=== PATIENT | female | born 1995 ===

== ENCOUNTER 2025-09-15 12:57 | Outpatient (AMB) | payer MEDICAID, SELFPAY ==
[2025-09-15 13:31] VITALS: BP 117/74; PULSE 74; RESP 18; TEMP 36.6; O2SAT 97; BMI 35.7
--- NOTE | 2025-09-15 13:31 | OBCLNT_ITS ---
Vital Signs 09/15/25 13:31 Height 1.55 m Height Method Stated Weight 85.956 kg Weight Measurement Method Standing Scale BMI 35.7 BP 117/74 Blood Pressure Source Automatic Cuff Blood Pressure Location Right Upper Arm Position Sitting Respiration 18 Pulse 74 Pulse Source Monitor Temp 97.8 F Temp Source Temporal Artery Scan Pulse Oximetry (%) 97 Oxygen Delivery Method Room Air Allergies/Home Meds Allergies & Medications Allergies No Known Allergies Allergy (Verified 10/03/25 09:04) Immunizations Immunizations Flu Vaccine in the Last 12 Months: No Flu Vaccine Exclusion Criteria: Refused by Patient Care OB Visit Log OB Flowsheet Initial Weight: Not Recorded Date -?-?-?-?-?-?-?-?-?-?-?-?- EGA Weight BP Alb Glu CTX Pres Fundal ht FHR Mov Dilation Station Effacement Hx Notes Visit Note 09/01/25 -?-?-?-?-?-?-?-?-?-?-?-?- 33w 5d 84.935 kg 99/64 absent cephalic 35 135 active Antonina Prather, , presents for routine visit at 33 weeks and 4 days gestation. No contractions, LOF, VB and reports goo d FM. Denies CONNELLY, VC, and epigastric pain. - Patient reports baby moving well, no contractions - Physical examination performed - Next appointment scheduled in 2 weeks with vaginal culture planned - Ultrasound to be ordered for next visi t (last ultrasound was in June) - Patient advised to register at [facility] for delivery 09/15/25 -?-?-?-?-?-?-?-?-?-?-?-?- 35w 5d 85.956 kg 117/74 absent cephalic 36 151 active - Antonina Lackey is here for a routine visit. - She reports no contractions and notes that the baby is active. - She denies any concerning symptoms or changes since her last visi t. - Vaginal culture (GBS) performed today - Follow up in one week - Continue care with coronary care unit nurse Joslyn for ne xt appointment 09/26/25 -?-?-?-?-?-?-?-?-?-?-?-?- 37w 2d 87.26 kg 117/58 absent cephalic 37 143 active 50 -3 Good movement no contractions no loss of fluids Group B strep done today. It was not sent last time. Cervix examined 10/03/25 -?-?-?-?-?-?-?-?-?-?-?-?- 38w 2d 86.239 kg 119/75 occasional cephalic 38 133 active 2 50 -2 Good movements GBS negative , L abor precautions EFW is 8.5 lbs OCTAVIANO Calculator Estimated Delivery Date Method Current WG Current Estimate 10/15/25 LMP (Certain) 40w 5d Expected Delivery Route/Plan 30-year-old -0-0-3 History of vaginal delivery x 3 with no complications Last baby 2 years old Anticipate Specific Issue/Plans Kyrgyz-speaking only Notes Visit Date: 09/26/25 Last Updated by: Lia Watson (OB Clinic)MD records: O+, antibody negative, rubella immune, RPR nonreactive, HIV negative, hepatitis B surface antigen negative, GC negative ,Chlamydia n egative Visit Date: 09/01/25 Last Updated by: Akshat Faulkner MD - Date: 04/07/2025 - Blood type: O positive - Antibody screen: Negative - RPR: Non-reactive - HIV: Non-reactive - Hepatitis B: Negative - Rubella: Immune - Gonorrhea: Negative - Chlamydia: Negative - SMA: Negative - Cystic fibrosis: Negative - Date: 07/25/2025 - One hour glucose tolerance test: 125 - Repeat RPR: Non-reactive Office Procedures [facility] Clinic LOC & Office Proc's Nursing/Assessment Patient Status: Established Patient OB Clinic Nursing Assessment: Medication Reconciliation, Update PMH in EMR and Vital Signs OB Clinic Coordination of Care: Complex Care and Chronic Disease 1-5, Education Complex Pt/Fam, Consent,records obtained, informed consent, Lab and Imaging orders, Results/Orders obtained and Staff clarify orders Special Needs: Heart tones Established Patient Charge Established Patient Point Assignment: 140 Established Patient Point Charge: EP Level 4 (120-155) Assessment & Plan Diagnosis / Problem List (1) Multigravida in third trimester: Status: Acute Plan Plan - Vaginal culture (GBS) performed today - Follow up in one week - Continue care with coronary care unit nurse Joslyn for next appointment 1. Progress Reviewed gestational age, growth, and heart rate. heart rate was 151-152 bpm, which is normal. Patient reports no contractions and baby is active. Planned frequent visits (every 2 weeks until 36 weeks, then weekly). Scheduled follow-up in one week. 2. Instructed patient to monitor movements and report decreases immediately. 3. Testing Counseled on routine third-trimester labs per guidelines. Group B Streptococcus (GBS) vaginal culture was performed today. Discussed potential need for ultrasound or monitoring based on risk factors. 4. Preeclampsia Precaution Educated on preeclampsia signs: severe headache, vision changes, right upper quadrant pain, sudden swelling. Advised urgent reporting of symptoms and discussed blood pressure monitoring if high risk. 5. Labor Precautions Reviewed labor signs: regular contractions, pelvic pressure, back pain, bleeding, or fluid leakage. Instructed to seek immediate care for these symptoms. 6. Lifestyle and Delivery Preparation Reinforced vitamins, nutrition, and safe activity. Discussed plan, pain management, and . Patient will be scheduled with coronary care unit nurse Joslyn for continuity of care as she may be the provider at delivery. Advised on labor preparation (e.g., hospital bag) and expectations. 7. Psychosocial Support Assessed emotional well-being and offered resources for mental health or parenting support.
== END 2025-09-15 14:13 | disposition home or self-care (01) ==
LOC: HODSOBC 12:57
PROVIDERS: Supervising Provider Obstetrics & Gynecology; Visit Provider Obstetrics & Gynecology
DX: Z34.83 Encounter for supervision of other normal pregnancy, third trimester (principal); Z3A.35 35 weeks gestation of pregnancy; Z36.85 Encounter for antenatal screening for Streptococcus B; Z28.21 Immunization not carried out because of patient refusal
CPT/HCPCS: 99214; G0463

== ENCOUNTER 2025-09-26 15:04 | Outpatient (AMB) | payer MEDICAID, SELFPAY ==
[2025-09-26 15:22] VITALS: BP 117/58; PULSE 70; RESP 18; TEMP 36.3; O2SAT 98; BMI 36.3
--- NOTE | 2025-09-26 15:22 | OBCLNT_ITS ---
Vital Signs 09/26/25 15:22 Height 1.55 m Height Method Stated Weight 87.26 kg Weight Measurement Method Standing Scale BMI 36.3 BP 117/58 L Blood Pressure Source Automatic Cuff Blood Pressure Location Right Upper Arm Position Sitting Respiration 18 Pulse 70 Pulse Source Monitor Temp 97.3 F Temp Source Temporal Artery Scan Pulse Oximetry (%) 98 Oxygen Delivery Method Room Air Allergies/Home Meds Allergies & Medications Allergies No Known Allergies Allergy (Verified 09/26/25 15:23) Medication Reconciliation No Known Home Medications 09/26/25 [History Confirmed 09/26/25] Immunizations Immunizations Flu Vaccine in the Last 12 Months: No Flu Vaccine Exclusion Criteria: No Exclusion Criteria Care OB Visit Log OB Flowsheet Initial Weight: Not Recorded Date -?-?-?-?-?-?-?-?-?-?-?-?- EGA Weight BP Alb Glu CTX Pres Fundal ht FHR Mov Dilation Station Effacement Hx Notes Visit Note 09/01/25 -?-?-?-?-?-?-?-?-?-?-?-?- 33w 5d 84.935 kg 99/64 absent cephalic 35 135 active Antonina Prather, , presents for routine visit at 33 weeks and 4 days gestation. No contractions, LOF, VB and reports goo d FM. Denies CONNELLY, VC, and epigastric pain. - Patient reports baby moving well, no contractions - Physical examination performed - Next appointment scheduled in 2 weeks with vaginal culture planned - Ultrasound to be ordered for next visi t (last ultrasound was in June) - Patient advised to register at [facility] for delivery 09/26/25 -?-?-?-?-?-?-?-?-?-?-?-?- 37w 2d 87.26 kg 117/58 absent cephalic 37 143 active 50 -3 Good movement no contractions no loss of fluids Group B strep done today. It was not sent last time. Cervix examined OCTAVIANO Calculator Estimated Delivery Date Method Current WG Current Estimate 10/15/25 LMP (Certain) 37w 2d Expected Delivery Route/Plan 30-year-old -0-0-3 History of vaginal delivery x 3 with no complications Last baby 2 years old Anticipate Specific Issue/Plans [place]-speaking only Notes Visit Date: 09/26/25 Last Updated by: Lia Watson (OB Clinic)MD records: O+, antibody negative, rubella immune, RPR nonreactive, HIV negative, hepatitis B surface antigen negative, GC negative ,Chlamydia negative Visit Date: 09/01/25 Last Updated by: Akshat Faulkner MD - Date: 04/07/2025 - Blood type: O positive - Antibody screen: Negative - RPR: Non-reactive - HIV: Non-reactive - Hepatitis B: Negative - Rubella: Immune - Gonorrhea: Negative - Chlamydia: Negative - SMA: Negative - Cystic fibrosis: Negative - Date: 07/25/2025 - One hour glucose tolerance test: 125 - Repeat RPR: Non-reactive Office Procedures [facility] Clinic LOC & Office Proc's Nursing/Assessment Patient Status: Established Patient OB Clinic Nursing Assessment: Medication Reconciliation, Update PMH in EMR and Vital Signs OB Clinic Coordination of Care: Complex Care and Chronic Disease 1-5, Education Complex Pt/Fam, Consent,records obtained, informed consent, Lab and Imaging orders, Results/Orders obtained and Staff clarify orders Special Needs: Heart tones Miscellaneous Interventions: Culture Specimen Collection Established Patient Charge Established Patient Point Assignment: 155 Established Patient Point Charge: EP Level 4 (120-155) Assessment & Plan Diagnosis / Problem List (1) Multigravida in third trimester: Status: Acute Plan: Routine care. Follow-up in 1 week. Kick counts and labor precautions discussed. Group B strep culture done today. Follow-up on group B strep culture next week. Additional Plan Follow Up: 1 Week
== END 2025-09-26 16:07 | disposition home or self-care (01) ==
LOC: HODSOBC 15:04
PROVIDERS: Supervising Provider Obstetrics & Gynecology; Visit Provider Obstetrics & Gynecology
DX: Z34.83 Encounter for supervision of other normal pregnancy, third trimester (principal); Z3A.37 37 weeks gestation of pregnancy; Z36.85 Encounter for antenatal screening for Streptococcus B
CPT/HCPCS: 99214; G0463

== ENCOUNTER 2025-10-03 08:22 | Outpatient (AMB) | payer MEDICAID, SELFPAY ==
[2025-10-03 09:01] VITALS: BP 119/75; PULSE 70; RESP 18; TEMP 36.2; O2SAT 98; BMI 35.9
--- NOTE | 2025-10-03 09:01 | OBCLNT_ITS ---
Vital Signs 10/03/25 09:01 Height 1.55 m Height Method Stated Weight 86.239 kg Weight Measurement Method Standing Scale BMI 35.9 BP 119/75 Blood Pressure Source Automatic Cuff Blood Pressure Location Left Upper Arm Position Sitting Respiration 18 Pulse 70 Pulse Source Monitor Temp 97.2 F Temp Source Oral Pulse Oximetry (%) 98 Oxygen Delivery Method Room Air Allergies/Home Meds Allergies & Medications Allergies No Known Allergies Allergy (Verified 10/03/25 09:04) Medication Reconciliation No Known Home Medications 09/26/25 [History Confirmed 10/03/25] Immunizations Immunizations Flu Vaccine in the Last 12 Months: No Flu Vaccine Exclusion Criteria: No Exclusion Criteria Care OB Visit Log OB Flowsheet Initial Weight: Not Recorded Date -?-?-?-?-?-?-?-?-?-?-?-?- EGA Weight BP Alb Glu CTX Pres Fundal ht FHR Mov Dilation Station Effacement Hx Notes Visit Note 09/01/25 -?-?-?-?-?-?-?-?-?-?-?-?- 33w 5d 84.935 kg 99/64 absent cephalic 35 135 active Antonina Prather, , presents for routine visit at 33 weeks and 4 days gestation. No contractions, LOF, VB and reports goo d FM. Denies CONNELLY, VC, and epigastric pain. - Patient reports baby moving well, no contractions - Physical examination performed - Next appointment scheduled in 2 weeks with vaginal culture planned - Ultrasound to be ordered for next visi t (last ultrasound was in June) - Patient advised to register at [facility] for delivery 09/26/25 -?-?-?-?-?-?-?-?-?-?-?-?- 37w 2d 87.26 kg 117/58 absent cephalic 37 143 active 50 -3 Good movement no contractions no loss of fluids Group B strep done today. It was not sent last time. Cervix examined 10/03/25 -?-?-?-?-?-?-?-?-?-?-?-?- 38w 2d 86.239 kg 119/75 occasional cephalic 38 133 active 2 50 -2 Good movements GBS negative , L abor precautions EFW is 8.5 lbs OCTAVIANO Calculator Estimated Delivery Date Method Current WG Current Estimate 12/20/25 LMP (Certain) 38w 2d Expected Delivery Route/Plan 30-year-old -0-0-3 History of vaginal delivery x 3 with no complications Last baby 2 years old Anticipate Specific Issue/Plans Korean-speaking only Notes Visit Date: 09/26/25 Last Updated by: Lia Watson (OB Clinic)MD records: O+, antibody negative, rubella immune, RPR nonreactive, HIV negative, hepatitis B surface antigen negative, GC negative ,Chlamydia negative Visit Date: 09/01/25 Last Updated by: Akshat Faulkner MD - Date: 04/07/2025 - Blood type: O positive - Antibody screen: Negative - RPR: Non-reactive - HIV: Non-reactive - Hepatitis B: Negative - Rubella: Immune - Gonorrhea: Negative - Chlamydia: Negative - SMA: Negative - Cystic fibrosis: Negative - Date: 07/25/2025 - One hour glucose tolerance test: 125 - Repeat RPR: Non-reactive Office Procedures [facility] Clinic LOC & Office Proc's Nursing/Assessment Patient Status: Established Patient OB Clinic Nursing Assessment: Medication Reconciliation, Update PMH in EMR and Vital Signs OB Clinic Coordination of Care: Consent,records obtained, informed consent, Education Simp Pt/Fam, Lab and Imaging orders, Results/Orders obtained and Staff clarify orders Special Needs: Heart tones Established Patient Charge Established Patient Point Assignment: 110 Established Patient Point Charge: EP Level 3 (80-115) Assessment & Plan Diagnosis / Problem List (1) 38 weeks gestation of : Status: Acute Additional Plan labor precautions , GBS negative , Follow up in 1 week Follow Up: 1 Week
== END 2025-10-03 09:33 | disposition home or self-care (01) ==
LOC: HODSOBC 08:22
PROVIDERS: Supervising Provider Obstetrics & Gynecology; Visit Provider Obstetrics & Gynecology
DX: Z34.83 Encounter for supervision of other normal pregnancy, third trimester (principal); Z3A.38 38 weeks gestation of pregnancy
CPT/HCPCS: 99213; G0463

== ENCOUNTER 2025-10-11 07:38 | Inpatient (IN) | payer MEDICAID, SELFPAY ==
[2025-10-11] VITALS (32 sets, daily range): BP systolic 94–147; BP diastolic 59–84; PULSE 73–97; RESP 16–18; TEMP 36.6–37.1; O2SAT 93–100; BMI 40.4
--- NOTE | 2025-10-11 07:58 | ESHP_ITS ---
Documentation for date of: 10/11/25 OB Labor/Induct. HPI History of Present Illness Chief complaint: ctx : 4 Para: 3 Term pregnancies: 3 pregnancies: 0 Living children: 3 History of Abortions: Spontaneous and Elective: 0 History of Vaginal deliveries: 3 History of sections: No History of : No Date of last menstrual period: 01/08/25 OCTAVIANO: 10/15/25 Gestational Age (weeks): 39 Gestational Age (days): 3 Gestational age based on last menstrual period: 39 History of present illness: Patient presents for regular, painful ctx that started at 0200. No LOF. No vaginal bleeding. Normal movement. No fevers/chills. History of Present Adequate Care: Yes (started with Dr. Franks, transferred to [facility]) Ultrasounds: normal mid trimester US (05/23/25) Narrative: Hx of 3 term 2014, 2016, 2022. Proven to 7+lb. Current significant for: -Current BMI 40.6 -Transfer of care from Dr. Franks to [facility] clinic in 3rd trimester Labs Maternal Blood Type: O Pos Narrative: - Date: 04/07/2025 - Blood type: O positive - Antibody screen: Negative - RPR: Non-reactive - HIV: Non-reactive - Hepatitis B: Negative - Rubella: Immune - Gonorrhea: Negative - Chlamydia: Negative - SMA: Negative - Cystic fibrosis: Negative - Date: 07/25/2025 - One hour glucose tolerance test: 125 - Repeat RPR: Non-reactive Review of Systems Review of Systems Narrative Review of Systems: Review of Systems Systems Reviewed: All systems reviewed, normal except as documented Constitutional Constitutional: Denies body ache(s), Denies chills, Denies fever(s) and Denies headache(s) ENT Ears, Nose, Mouth, and Throat: Denies headache(s) and Denies vertigo Cardiovascular Cardiovascular: Denies chest pain, Denies palpitations, Denies dyspnea and Denies syncope Respiratory Respiratory: Denies cough, Denies dyspnea Gastrointestinal Gastrointestinal: Denies nausea and Denies vomiting Neurologic Neurologic: Denies convulsions, Denies headache(s), Denies other visual disturbances, Denies syncope and Denies vertigo Past Medical History Family History OTHER FAMILY HX: non-contributory Surgical History SURGICAL: Negative Section OTHER SURGICAL HX: denies Social History SOCIAL: No tobacco/ETOH/illicit drug use Past Medical History Comments PMH COMMENT: -Current BMI 40.6 Meds Home Medications and Allergies Home Medications ?Medication ?Instructions ?Recorded ?Confirmed ?Type No Known Home Medications 09/26/2506/20 History Allergies Allergy/AdvReac Type Severity Reaction Status Date / Time No Known Allergies Allergy Verified 10/03/25 09:04 OB Exam Physical Exam Narrative: General: well developed, well nourished, no acute distress, conversant Cardiac: normal heart rate Lungs: breathing without distress Abdomen: soft, gravid, non-tender, no rebound or guarding Extremities: no pain with palpation of calves Detailed Labor and Delivery Exam Dilation (cm): 7 Effacement (%): 80 Cervix position: anterior station: -2 Consistency: soft Presentation: Vertex Membranes: intact Baseline heart rate: 140 monitor accelerations: 15x15 monitor decelerations: None termite inspector variability: Moderate (11-25) (min-mod) Contraction frequency (min): q2-5min OB Assessment & Plan Assessment and Plan (1) Active labor at term: Status: Acute Assessment and plan: Antonina is a 30yo with SIUP at 39&3wk presenting in active labor. Regular/painful contractions, SCE: 7/80/-2. Vitals wnl, benign exam. Reassuring assessment. PMhx/ complicated by: -Current BMI 40.6 -Transfer of care from Dr. Franks to [facility] clinic in 3rd trimester Plan: -Admit to L&D -Establish IV, routine labs -CEFM -Clear liquid diet -Beading Installer/consent re: -GBS status: negative -Anticipate -Safe to proceed (2) 39 weeks gestation of : Status: Acute (3) Obesity affecting in third trimester: Status: Acute (3) Obesity affecting in third trimester Qualifiers: Obesity type affecting : unspecified obesity Qualified Code(s): O99.213 - Obesity complicating , third trimester
[2025-10-11] MEDS: RINGERS LACTATED 1000 ML 1,000 ML 100 ML IV (08:19)
[2025-10-11 09:02] LABS: Basophils # (Auto) 0.0 Thou/mm3 (0.0-0.2); Basophils % (Auto) 0 % (0-2.5); Eosinophils # (Auto) 0.0 Thou/mm3 (0.0-0.5); Eosinophils % (Auto) 0 % (0-10); Hematocrit 36.6 % (36.0-46.0); Hemoglobin 12.1 g/dL (12.0-16.0); Immature Granulocytes Auto 0.05 Thou/mm3 (0.00-0.00); Lymphocytes # (Auto) 2.1 Thou/mm3 (1.0-4.8); Lymphocytes % (Auto) 19 % (10-50); Mean Corpuscular HGB Conc 33.1 g/dl (31.0-37.0); Mean Corpuscular Hemoglobin 28.1 pg (25.0-35.0); Mean Corpuscular Volume 85 fL (80-100); Monocytes # (Auto) 0.7 Thou/mm3 (0.0-0.8); Monocytes % (Auto) 7 % (0-12); Neutrophils # (Auto) 8.2 Thou/mm3 (1.8-7.7); Neutrophils % (Auto) 74 % (37-80); Nucleated Red Blood Cell # 0.00 Thou/mm3 (0.00-0.00); Nucleated Red Blood Cell % 0 /100 WBC (0); Platelet Count 260 Thou/mm3 (140-440); RDW Standard Deviation 43.8 fL (36.4-46.3); Red Blood Count 4.30 Miln/mm3 (4.00-5.20); White Blood Count 11.1 Thou/mm3 (3.6-11.0)
[2025-10-11 09:31] LABS: Syphilis Nonreactive (Nonreactive)
[2025-10-11] MEDS: METHYLERGONOVINE INJ 0.2 MG/ML VIAL IM (10:24)
[2025-10-11] MEDS: MINERAL OIL 30 ML UDC TOP (10:27)
[2025-10-11] MEDS: OXYTOCIN in NS 20 units 20 UNIT/1,000 ML BAG 125 UNIT IV (10:28)
--- NOTE | 2025-10-11 10:40 | OBDSUM_ITS ---
Data (Alvarado) Data Hx Section: No : 4 Term: 3 : 0 Livin Abortions: Spontaneous & Theraputic: 0 Delivery Data (Alvarado) Labor Data Initiation of labor: Augmentation Induction/Augmentation Agent: Artificial ROM ROM date: 10/11/25 ROM time: 08:15 Amniotic membrane rupture type: Artificial Amniotic fluid description: Clear Delivery Data Complete dilation date: 10/11/25 [place] delivery date: 10/11/25 [place] delivery time: 10:18 Placenta delivery date: 10/11/25 Placenta delivery time: 10:24 Delivered by: Sebastián Delivery nurse: Keiko Abrams nurse: Amina Leonard Wireless Development Manager at delivery: No Delivery Method Delivery method: Normal Vaginal Delivery Presentation: Vertex Anesthesia Type Anesthesia Type: None Placenta Placenta delivery description: Spontaneous Cord blood sent to lab: Yes cord blood collection: Cord Blood Type Episiotomy Episiotomy description: None EBL Estimated blood loss (ml): 350 Umbilical Cord cord description: 3 Vessels Additional Procedures Antonina is a 30yo s/p uncomplicated at 39&3wk after presenting in active labor, delivering at 1018 on 10/11/2025. On presentation, SCE was 7cm. She progressed with only AROM for augmentation to C/C/0 at which point she began pushing. She did not receive an epidural. With good maternal pushing efforts, infant's head delivered OA and restituted MAGALY. Right anterior shoulder delivered easily followed by posterior shoulder and corpus. Infant had spontaneous cry and was vigorous. Apgars 9/9. Infant placed on maternal abdomen where nose/mouth were suctioned and infant dried/stimulated. After approximately 2 minute, cord was clamped x2 and cut by Cord blood collected for typing. With fundal massage and cord traction, placenta delivered spontaneously and intact with 3 vessel centrally inserted cord. Bimanual massage performed and IV pitocin given per protocol with fundus then firm at u-2cm and hemostasis noted. Inspection of perineum and vagina revealed no lacerations, just a small hemostatic celi-urethral abrasion that did not require repair. Small trickle of blood, so sweep just within cervix/AIDEE performed which retrieved a moderate amount of clot. Bimanual massage again performed and 0.2mg IM methergine given with observed hemostasis after. Cytotec 800mcg AL placed for ppx against future atony. All counts correct x2. Mom and infant were doing well when I left the room. Юлия Lowery MD Complications Complications: none Data (Alvarado) [place] Data 's gender: Male Identification band number: [id number] weight (gms): 3830 g Weight (pounds): 8 lbs and 7.1 ozs 1 minute: 9 5 minutes: 9
[2025-10-11] MEDS: ACETAMINOPHEN 325 MG TABLET 650 MG PO (11:04)
[2025-10-11] MEDS: IBUPROFEN TAB 400 MG TABLET 800 MG PO (11:05)
[2025-10-11] MEDS: DOCUSATE SOD 100 MG CAPSULE PO (21:06)
[2025-10-12 01:11] LABS: Basophils # (Auto) 0.0 Thou/mm3 (0.0-0.2); Basophils % (Auto) 0 % (0-2.5); Eosinophils # (Auto) 0.0 Thou/mm3 (0.0-0.5); Eosinophils % (Auto) 0 % (0-10); Hematocrit 30.5 % (36.0-46.0); Hemoglobin 10.3 g/dL (12.0-16.0); Immature Granulocytes Auto 0.05 Thou/mm3 (0.00-0.00); Lymphocytes # (Auto) 2.6 Thou/mm3 (1.0-4.8); Lymphocytes % (Auto) 21 % (10-50); Mean Corpuscular HGB Conc 33.8 g/dl (31.0-37.0); Mean Corpuscular Hemoglobin 28.9 pg (25.0-35.0); Mean Corpuscular Volume 86 fL (80-100); Monocytes # (Auto) 1.0 Thou/mm3 (0.0-0.8); Monocytes % (Auto) 8 % (0-12); Neutrophils # (Auto) 8.7 Thou/mm3 (1.8-7.7); Neutrophils % (Auto) 70 % (37-80); Nucleated Red Blood Cell # 0.00 Thou/mm3 (0.00-0.00); Nucleated Red Blood Cell % 0 /100 WBC (0); Platelet Count 208 Thou/mm3 (140-440); RDW Standard Deviation 44.3 fL (36.4-46.3); Red Blood Count 3.56 Miln/mm3 (4.00-5.20); White Blood Count 12.5 Thou/mm3 (3.6-11.0)
[2025-10-12 03:52] VITALS: BP 94/59; PULSE 78; RESP 17; TEMP 36.6; O2SAT 98
[2025-10-12] MEDS: DOCUSATE SOD 100 MG CAPSULE PO (07:55)
[2025-10-12 08:00] VITALS: BP 113/72; PULSE 82; RESP 16; TEMP 36.3; O2SAT 98
--- NOTE | 2025-10-12 09:25 | CHAP ---
Gave a blessing on and family.
[2025-10-12 12:00] VITALS: BP 110/61; PULSE 69; RESP 16; TEMP 36.6; O2SAT 99
--- NOTE | 2025-10-12 13:13 | PD.LDDS ---
DS: Providers Provider Date of admission: 10/11/25 07:54 Primary care physician: Physician No Primary/Family Admitting Provider: Юлия Lowery MD Attending Provider on Admission: Юлия Lowery MD Consults: 10/11/25 10:37 Referral Routine Comment: Attending Provider on DC: Celena Mar MD Discharging Provider: Celena Mar MD DS: Diagnosis Discharge Diagnosis (1) Active labor at term: Status: Acute (2) 39 weeks gestation of : Status: Acute (3) Vaginal delivery: Status: Acute (4) care and examination: Status: Acute Problem List Completed Was Problem List Reviewed/Reconciled?: Yes Summary/Hosp Course Brief History: PPD #1 doing well MARCEL Sarkar is a 30yo s/p uncomplicated at 39&3wk after presenting in active labor, delivering at 1018 on 10/11/2025. On presentation, SCE was 7cm. She progressed with only AROM for augmentation to C/C/0 at which point she began pushing. She did not receive an epidural. With good maternal pushing efforts, 's head delivered OA and restituted MAGALY. Right anterior shoulder delivered easily followed by posterior shoulder and corpus. Infant had spontaneous cry and was vigorous. Apgars 9/9. Peripartum Data Delivery Method: Normal Vaginal Delivery Episiotomy Description: None complications: none Status at Discharge Cognitive/behavioral status at discharge: alert x3 chest clear CVS RRR NO thyromegaly Uterus is nontender Uterus is firm/ appropriate size Just below the umbilicus Bowel sounds present Abdomen soft no hernias noted/no CVAT No calf tenderness Edema mild Functional status at discharge: independent ambulation Overall status at discharge: patient is progressing back to baseline Time Spent with Patient Time attestation: Total time spent providing and/or coordinating discharge services: Time spent: Less than 30 minutes Exam Vital Signs Temp Pulse Resp BP Pulse Ox O2 Del Method 97.3 F 82 16 113/72 98 Room Air 10/12/25 08:00 10/12/25 08:00 10/12/25 08:00 10/12/25 08:00 10/12/25 08:00 10/12/25 08:00 Narrative Exam Patient had a normal vaginal delivery. care routine. She is doing well, VSS alert and oriented/normal insight and judgment/denies depression or anxiety No chest pain No shortness of breath No fever Back pain manageable/denies Moving all extremities No calf pain Ambulating pain managed by Tylenol and Motrin, normal Lochia average Voiding spontaneously No concerns Planning to breast-feed/bottle Feed//both Counseled on breast-feeding Counseled on care and follow-up Discharge Plan Plan Patient Disposition: HOME (Self Care) Patient condition on transfer: Stable Prescriptions/Referrals Prescriptions/Med Rec: New docusate sodium 100 mg Capsule 100 mg PO BID 10 Days Qty: 20 0RF ibuprofen 800 mg tablet 800 mg PO Q8H PRN (Reason: See Comments) 10 Days Qty: 20 0RF Referrals: No Primary/Family,Physician [Primary Care Provider] Patient/Caregiver Discharge Instructions Discharge Activity: activity as tolerated and other Other Discharge Activity Instructions:: vaginal rest and no heavy lifting more than 10 pounds for 6 weeks Other Discharge Diet Instructions: hacer uzair con gynecologo tobias indicado Education Materials: After a Vaginal , Breast Care After , Nutrition While , Understanding Depression Print Language: Dominican Activity Restrictions/Additional Instructions: follow up with Dr. Mar or Dr. Faulkner in 4 to 6 weeks for visit, call clinic to schedule appointment Stand Alone Forms: Jenifer Award Info., Patient Portal Info Letter, Work/Release Restrictions Discharge Order Discharge Orders: Discharge (Routine); Ordered 10/12/25 Ordered By: Celena Mar Planned Discharge Date 10/12/25
== END 2025-10-12 15:35 | disposition home or self-care (01) | DRG 560 ==
LOC: S4SX 10:43 → S4NX 12:46
PROVIDERS: Admitting Provider Obstetrics & Gynecology; Visit Provider Obstetrics & Gynecology
DX: O99.214 Obesity complicating childbirth (principal); Z37.0 Single live birth; Z3A.39 39 weeks gestation of pregnancy
CPT/HCPCS: 36415; 59409; 85025; 86780; 86850; 86900; 86901; 94762; J2210; J2590; J7120; S0191; A9270